=== PATIENT | male | born 1970 | race Two or more races ===

== ENCOUNTER 2017-04-10 17:37 | Emergency (ER) | payer MEDICAID, OTHER ==
[~2017-04-10] VITALS: Ht 157.5 cm; Wt 55.8 kg
[2017-04-10 18:57] LABS: Basophils # (auto) 0 uL; Basophils % (auto) 0.9 % (0.0-2.0); Eosinophils # (auto) 0.1 uL; Eosinophils % (auto) 2.1 % (0.0-7.0); Hematocrit 46.5 % (41.0-53.0); Hemoglobin 15.5 g/dL (13.5-17.5); Lymphocytes % (auto) 20.5 % (10.0-50.0); Mean Corpuscular Hemoglobin 30.3 pg (28.0-32.0); Mean Corpuscular Hgb Conc. 33.4 g/dL (32.0-36.0); Mean Corpuscular Volume 90.7 fL (80.0-100.0); Mean Platelet Volume 6.9 fL (6.9-10.8); Monocytes # (auto) 0.4 uL; Neutrophils # (auto) 3.2 uL; Neutrophils % (auto) 67.5 % (37.0-80.0); Nucleated Red Blood Cells % 0.2 %; Platelet Count (auto) 184 10^3/uL (140-450); White Blood Cell 4.8 10^3/uL (4.4-10.8)
[2017-04-10 19:14] LABS: Red Cell Distribution Width 20.4 % (11.8-14.3)
[2017-04-10 19:20] LABS: Albumin 3.6 g/dL (3.4-5.0); BUN/Creatinine Ratio 4.8; Bilirubin, Total 1.2 mg/dL (0.2-1.0); Calcium 9.7 mg/dL (8.5-10.1); Potassium 4.9 mmol/L (3.5-5.1); Total Protein 8.1 g/dL (6.4-8.2)
[2017-04-10 20:21] LABS: Platelet Estimate Adequate; Stomatocytes Few; Tear Drop Cells FEW
[2017-04-10 20:22] LABS: Anisocytosis Slight
[2017-04-11 08:44] LABS: INR 1.18 (0.9-1.15); Prothrombin Time 12.9 sec (9.37-12.3)
[2017-04-11] MEDS ORDERED: NITROGLYCERIN 0.4 MG SL TAB SL PRN (09:30)
[2017-04-11] MEDS ORDERED: HYDROcodone-ACET 5/325MG TAB PO PRN (09:30)
[2017-04-11] MEDS ORDERED: MORPHINE SULF INJ 2 MG/ML SYRINGE 1ML IV PRN ×2 (09:30)
[2017-04-11] MEDS ORDERED: TEMAZEPAM 15 MG CAP PO PRN (09:30)
[2017-04-11] MEDS ORDERED: LABETALOL HCL 5 MG/ML ML 20ML VIAL IV PRN ×2 (09:30)
[2017-04-11] MEDS ORDERED: LORazepam 0.5 MG TAB PO PRN (09:30)
[2017-04-11] MEDS ORDERED: ACETAMINOPHEN 500 MG TAB PO PRN (09:30)
[2017-04-11] MEDS ORDERED: PROMETHAZINE HCL 25 MG/ML 1ML IV PRN (09:30)
[2017-04-11] MEDS: HEPARIN SODIUM (PORCINE) 5000 UNITS/ML 1ML VIAL SC SCH ×2 (09:55→10:00)
[2017-04-11] MEDS ORDERED: METOPROLOL TARTRATE 25 MG TAB PO SCH (10:00)
[2017-04-11] MEDS ORDERED: FAMOTIDINE 20 MG TAB PO SCH ×2 (10:00)
[2017-04-11] MEDS ORDERED: NITROGLYCERIN 0.2MG/HR TOPICAL PATCH TD SCH (10:00)
[2017-04-11] MEDS ORDERED: amLODIPine BESYLATE 5 MG TAB PO SCH (10:00)
[2017-04-11 10:04] VITALS: BP 156/100
== END 2017-04-11 11:50 | disposition home or self-care (01) ==
LOC: ER 17:53
DX: R18.8 Other ascites (principal); I12.0 Hypertensive chronic kidney disease with stage 5 chronic kidney disease or end stage renal disease; N18.6 End stage renal disease; Z99.2 Dependence on renal dialysis
CPT/HCPCS: 36415; 71020; 74176; 76705; 80053; 82150; 82378; 82550; 83690; 84484; 85025; 85379; 85610; 85652; 86141; 93005; 99285; J1644